=== PATIENT | female | born 1970 | race Caucasian/White ===

== ENCOUNTER 2019-09-16 09:31 | Emergency (ER) | payer BC, SELFPAY ==
[2019-09-16] MEDS ORDERED: diphenhydrAMINE 50 MG/ML VIAL ONE (12:12)
[2019-09-16] MEDS ORDERED: Ketorolac Tromethamine 30 MG/ML VIAL ONE (12:12)
[2019-09-16] MEDS ORDERED: Metoclopramide HCl 10 MG/2 ML VIAL ONE (12:12)
== END 2019-09-16 13:11 | disposition home or self-care (01) ==
LOC: ERS 09:31
DX: G43.909 Migraine, unspecified, not intractable, without status migrainosus (principal); I10 Essential (primary) hypertension; F17.210 Nicotine dependence, cigarettes, uncomplicated; Z79.899 Other long term (current) drug therapy
CPT/HCPCS: 99283; J1200; J1885; J2765